=== PATIENT | female | born 1975 | race Two or more races ===

== ENCOUNTER 2019-10-29 12:42 | Emergency (ER) | payer OTHER ==
[~2019-10-29] VITALS: Ht 167.6 cm; Wt 89.4 kg
[2019-10-29 13:18] LABS: BASO # 0.1 x10^3/uL (0.0-0.2); BASO % 1 % (0-3); EOS # 0.2 x10^3/uL (0.0-0.7); EOS % 2 % (0-3); HEMATOCRIT 44.2 % (36.0-47.0); HEMOGLOBIN 15.3 g/dL (12.0-15.5); LYMPH # 2.2 x10^3/uL (1.0-4.8); LYMPH % 24 % (24-48); MEAN CORPUSCULAR HEMOGLOBIN 29 pg (25-35); MEAN CORPUSCULAR HGB CONC 35 g/dL (31-37); MEAN CORPUSCULAR VOLUME 82 fL (79-100); MONO # 0.4 x10^3/uL (0.0-1.1); MONO % 4 % (0-9); NEUT # 6.6 x10^3/uL (1.8-7.7); NEUT % 70 % (31-73); PLATELET COUNT 245 x10^3/uL (140-400); RED BLOOD COUNT 5.39 x10^6/uL (3.50-5.40); RED CELL DISTRIBUTION WIDTH 13.8 % (11.5-14.5); WHITE BLOOD COUNT 9.4 x10^3/uL (4.0-11.0)
[2019-10-29] MEDS: IV NORMAL SALINE 1000ML BAG 1,000 ML IV ONE (13:25)
[2019-10-29] MEDS: TAMSULOSIN 0.4 MG CAP.ER.24H. PO ONE (13:26)
[2019-10-29] MEDS: MORPHINE SULFATE 10 MG/ML VIAL. IV ONE (13:27)
[2019-10-29] MEDS: ONDANSETRON PF 4 MG/2 ML VIAL. IV ONE (13:27)
[2019-10-29 13:31] LABS: CALCIUM 8.6 mg/dL (8.5-10.1); CREATININE 1.1 mg/dL (0.6-1.0); GFR 53.7; POTASSIUM 3.3 mmol/L (3.5-5.1)
[2019-10-29 13:47] LABS: ALBUMIN 4.6 g/dL (3.4-5.0); ALBUMIN/GLOBULIN RATIO 1.3 (1.0-1.7); TOTAL BILIRUBIN 0.7 mg/dL (0.2-1.0); TOTAL PROTEIN 8.1 g/dL (6.4-8.2)
[2019-10-29 14:50] LABS: BILIRUBIN,URINE NEGATIVE (NEG); CLARITY,URINE CLEAR; COLOR,URINE YELLOW; NITRITE,URINE NEGATIVE (NEG); PROTEIN,URINE 30 mg/dL (NEG-TRACE)
[2019-10-29 14:54] LABS: BARBITURATES NEG (NEG); BENZODIAZEPINES NEG (NEG); CANNABINOIDS NEG (NEG); COCAINE NEG (NEG); METHADONE NEG (NEG); OPIATES POS (NEG); PHENCYCLIDINE NEG (NEG)
[2019-10-29 14:58] LABS: AMPHETAMINE/METHAMPHETAMINE NEG (NEG)
[2019-10-29 14:59] LABS: SQUAMOUS EPITHELIAL CELL,UR MOD /LPF
[2019-10-29 15:00] LABS: BACTERIA,URINE 0 /HPF (0-FEW); RBC,URINE TNTC /HPF (0-2); WBC,URINE 0 /HPF (0-4)
--- NOTE | 2019-10-29 15:03 | RAD ---
CT ABDOMEN PELVIS WO CONTRAST Indication: Left flank pain. Exposure: One or more of the following individualized dose reduction techniques were utilized for this examination: 1. Automated exposure control 2. Adjustment of the mA and/or kV according to patient size 3. Use of iterative reconstruction technique. Comparison: Limited images from exam of November 25, 2012. Technique: No intravenous contrast given. No oral contrast per request. Findings: Evaluation of solid viscera, bowel and vasculature is compromised by the noncontrast technique. Lung bases are clear. Liver appears unremarkable. Spleen is mildly enlarged, measuring 13 cm length. This was also seen previously. Pancreas is grossly unremarkable. No evidence of adrenal mass. Nonobstructive calculus identified within the lower pole the left kidney, measures 8 mm. Mild left hydronephrosis and ureteric dilatation to the distal left ureter. Small 6 mm density thought to be within the distal left ureter, compatible with obstructive calculus. Limited images are available from a study 11/25/2012 and this not evident on that exam. Mild fatty stranding around the left ureter and left renal pelvis. Tiny nonobstructive right renal calculi are identified. No evidence of right sided hydronephrosis or ureteric dilatation. Gallbladder surgically absent. Aorta is nonaneurysmal. No significant lymph node enlargement. No significant small bowel distention. Colonic diverticulosis, mild. No evidence of acute colitis. Mild stool identified within the colon. Appendix is visualized, without evidence of acute appendicitis. No significant ascites. No evidence of pneumoperitoneum. The urinary bladder is grossly unremarkable. No evidence of pelvic mass. Vertebral body height and alignment appear intact. IMPRESSION: 1. Findings are most compatible with a 6 mm obstructive calculus in the distal left ureter. Stranding in the fat around the left renal pelvis and ureter could be postobstructive or due to superimposed infection. 2. Additional nonobstructive renal calculi bilaterally. Electronically signed by: Marin Pineda MD (10/29/2019 3:01 PM) [id number]
[2019-10-29] MEDS: HYDROmorphone 2 MG/ML VIAL IV ONE ×2 (15:32→16:30)
--- NOTE | 2019-10-29 15:36 | PHYS DOC ---
Past Medical History Past Medical History: Hypertension, Kidney Stone Past Surgical History: Other Additional Past Surgical Histo: UNKNOWN Alcohol Use: None Drug Use: None Adult General Chief Complaint Chief Complaint: FLANK PAIN HPI HPI Patient is a 44 year old female with history of hypertension, kidney stones, who presents to the ED today complaining of worsening left flank pain, symptoms began 2 weeks ago and she reports they've gotten worse in the last couple days. Patient denies anything specifically exacerbating or relieving her pain Review of Systems Review of Systems Constitutional: Denies fever or chills [] Eyes: Denies change in visual acuity, redness, or eye pain [] HENT: Denies nasal congestion or sore throat [] Respiratory: Denies cough or shortness of breath [] Cardiovascular: No additional information not addressed in HPI [] GI: Denies abdominal pain, nausea, vomiting, bloody stools or diarrhea [] : Reports left flank pain. Denies dysuria or hematuria [] Musculoskeletal: Denies back pain or joint pain [] Integument: Denies rash or skin lesions [] Neurologic: Denies headache, focal weakness or sensory changes [] All other systems were reviewed and found to be within normal limits, except as documented in this note. Current Medications Current Medications Current Medications Medications (Trade) Dose Ordered Sig/Che Start Time Stop Time Status Last Admin Dose Admin Hydromorphone HCl (Dilaudid) 1 mg 1X ONCE 10/29/19 15:30 10/29/19 15:31 DC 10/29/19 15:32 1 MG Morphine Sulfate (Morphine Sulfate) 5 mg 1X ONCE 10/29/19 13:15 10/29/19 13:16 DC 10/29/19 13:27 5 MG Ondansetron HCl (Zofran) 4 mg 1X ONCE 10/29/19 13:15 10/29/19 13:16 DC 10/29/19 13:27 4 MG Sodium Chloride 1,000 ml @ 1,000 mls/hr 1X ONCE 10/29/19 13:15 10/29/19 14:14 DC 10/29/19 13:25 1,000 MLS/HR Tamsulosin HCl (Flomax) 0.4 mg 1X ONCE 10/29/19 13:15 10/29/19 13:16 DC 10/29/19 13:26 0.4 MG Allergies Allergies Allergies Coded Allergies Type Severity Reaction Last Updated Verified Penicillins Allergy Severe Shortness of Air 10/29/19 Yes neomycin Allergy Severe Rash 10/29/19 Yes Physical Exam Physical Exam Constitutional: Well developed, well nourished, no acute distress, non-toxic appearance. [] HENT: Normocephalic, atraumatic, bilateral external ears normal, oropharynx moist, no oral exudates, nose normal. [] Eyes: PERRLA, EOMI, conjunctiva normal, no discharge. [] Neck: Normal range of motion, no tenderness, supple, no stridor. [] Cardiovascular:Heart rate regular rhythm, no murmur [] Lungs & Thorax: Bilateral breath sounds clear to auscultation [] Abdomen: Bowel sounds normal, soft, no tenderness, no masses, no pulsatile masses. [] Skin: Warm, dry, no erythema, no rash. [] Back: No tenderness, mild left CVA tenderness. [] Extremities: No tenderness, no cyanosis, no clubbing, ROM intact, no edema. [] Neurologic: Alert and oriented X 3, normal motor function, normal sensory function, no focal deficits noted. [] Psychologic: Affect normal, judgement normal, mood normal. [] Current Patient Data Vital Signs Vital Signs Date Time Temp Pulse Resp B/P (MAP) Pulse Ox O2 Delivery O2 Flow Rate FiO2 10/29/19 12:52 98.0 78 22 157/91 (113) 99 Room Air 98.0 Lab Values Laboratory Tests Test 10/29/19 13:00 10/29/19 14:10 White Blood Count 9.4 x10^3/uL (4.0-11.0) Red Blood Count 5.39 x10^6/uL (3.50-5.40) Hemoglobin 15.3 g/dL (12.0-15.5) Hematocrit 44.2 % (36.0-47.0) Mean Corpuscular Volume 82 fL (79-100) Mean Corpuscular Hemoglobin 29 pg (25-35) Mean Corpuscular Hemoglobin Concent 35 g/dL (31-37) Red Cell Distribution Width 13.8 % (11.5-14.5) Platelet Count 245 x10^3/uL (140-400) Neutrophils (%) (Auto) 70 % (31-73) Lymphocytes (%) (Auto) 24 % (24-48) Monocytes (%) (Auto) 4 % (0-9) Eosinophils (%) (Auto) 2 % (0-3) Basophils (%) (Auto) 1 % (0-3) Neutrophils # (Auto) 6.6 x10^3/uL (1.8-7.7) Lymphocytes # (Auto) 2.2 x10^3/uL (1.0-4.8) Monocytes # (Auto) 0.4 x10^3/uL (0.0-1.1) Eosinophils # (Auto) 0.2 x10^3/uL (0.0-0.7) Basophils # (Auto) 0.1 x10^3/uL (0.0-0.2) Maternal Serum HCG Beta Subunit < 1 mIU/mL (0-5) Sodium Level 138 mmol/L (136-145) Potassium Level 3.3 mmol/L (3.5-5.1) L Chloride Level 102 mmol/L (98-107) Carbon Dioxide Level 27 mmol/L (21-32) Anion Gap 9 (6-14) Blood Urea Nitrogen 18 mg/dL (7-20) Creatinine 1.1 mg/dL (0.6-1.0) H Estimated GFR (Cockcroft-Gault) 53.7 BUN/Creatinine Ratio 16 (6-20) Glucose Level 109 mg/dL (70-99) H Calcium Level 8.6 mg/dL (8.5-10.1) Total Bilirubin 0.7 mg/dL (0.2-1.0) Aspartate Amino Transferase (AST) 25 U/L (15-37) Alanine Aminotransferase (ALT) 35 U/L (14-59) Alkaline Phosphatase 72 U/L (46-116) Total Protein 8.1 g/dL (6.4-8.2) Albumin 4.6 g/dL (3.4-5.0) Albumin/Globulin Ratio 1.3 (1.0-1.7) Lipase 137 U/L (73-393) Ethyl Alcohol Level < 10 mg/dL (0-10) Urine Collection Type Unknown Urine Color Yellow Urine Clarity Clear Urine pH 6.0 Urine Specific [place] 1.010 Urine Protein 30 mg/dL (NEG-TRACE) Urine Glucose (UA) Negative mg/dL (NEG) Urine Ketones (Stick) Negative mg/dL (NEG) Urine Blood Large (NEG) Urine Nitrite Negative (NEG) Urine Bilirubin Negative (NEG) Urine Urobilinogen Dipstick 1.0 mg/dL (0.2 mg/dL) Urine Leukocyte Esterase Trace (NEG) Urine RBC Tntc /HPF (0-2) Urine WBC 0 /HPF (0-4) Urine Squamous Epithelial Cells Mod /LPF Urine Bacteria 0 /HPF (0-FEW) Urine Opiates Screen Pos (NEG) Urine Methadone Screen Neg (NEG) Urine Barbiturates Neg (NEG) Urine Phencyclidine Screen Neg (NEG) Urine Amphetamine/Methamphetamine Neg (NEG) Urine Benzodiazepines Screen Neg (NEG) Urine Cocaine Screen Neg (NEG) Urine Cannabinoids Screen Neg (NEG) Urine Ethyl Alcohol Neg (NEG) Laboratory Tests 10/29/19 13:00 Laboratory Tests 10/29/19 13:00 EKG EKG [] Radiology/Procedures Radiology/Procedures []PROCEDURE: CT ABDOMEN PELVIS WO CONTRAST CT ABDOMEN PELVIS WO CONTRAST Indication: Left flank pain. Exposure: One or more of the following individualized dose reduction techniques were utilized for this examination: 1. Automated exposure control 2. Adjustment of the mA and/or kV according to patient size 3. Use of iterative reconstruction technique. Comparison: Limited images from exam of November 25, 2012. Technique: No intravenous contrast given. No oral contrast per request. Findings: Evaluation of solid viscera, bowel and vasculature is compromised by the noncontrast technique. Lung bases are clear. Liver appears unremarkable. Spleen is mildly enlarged, measuring 13 cm length. This was also seen previously. Pancreas is grossly unremarkable. No evidence of adrenal mass. Nonobstructive calculus identified within the lower pole the left kidney, measures 8 mm. Mild left hydronephrosis and ureteric dilatation to the distal left ureter. Small 6 mm density thought to be within the distal left ureter, compatible with obstructive calculus. Limited images are available from a study 11/25/2012 and this not evident on that exam. Mild fatty stranding around the left ureter and left renal pelvis. Tiny nonobstructive right renal calculi are identified. No evidence of right sided hydronephrosis or ureteric dilatation. Gallbladder surgically absent. Aorta is nonaneurysmal. No significant lymph node enlargement. No significant small bowel distention. Colonic diverticulosis, mild. No evidence of acute colitis. Mild stool identified within the colon. Appendix is visualized, without evidence of acute appendicitis. No significant ascites. No evidence of pneumoperitoneum. The urinary bladder is grossly unremarkable. No evidence of pelvic mass. Vertebral body height and alignment appear intact. IMPRESSION: 1. Findings are most compatible with a 6 mm obstructive calculus in the distal left ureter. Stranding in the fat around the left renal pelvis and ureter could be postobstructive or due to superimposed infection. 2. Additional nonobstructive renal calculi bilaterally. Electronically signed by: Marin Pineda MD (10/29/2019 3:01 PM) [id number] DICTATED and SIGNED BY: MARIN PINEDA MD DATE: 10/29/19 1501 Course & Med Decision Making Course & Med Decision Making Pertinent Labs and Imaging studies reviewed. (See chart for details) This is a 44-year-old female patient with history of kidney stones presenting to the ED today complaining of left flank pain, symptoms began 2 weeks ago and have gotten worse today. Negative beta hCG, urine analysis is noted for large amount of blood, negative nitrites, trace amount of leukocytes. CBC, CMP-nothing really acute. CT of the abdomen and pelvic is noted for-6 mm obstructive calculus in the distal left ureter. Stranding in the fat around the left renal pelvis and ureter could be postobstructive or due to superimposed infection.Additional nonobstructive renal calculi bilaterally. Patient reports the last time she had a kidney stone stone they had to surgically remove it. [facility] does not have a urologist. Patient will be transferred to (her choice of hospital). Spoke with urologist-she requested we discharge patient to home, they will contact the patient tonight and set her up for an outpatient surgical procedure to remove the kidney stone. Patient is stable to go home. Dragon Disclaimer Dragon Disclaimer This electronic medical record was generated, in whole or in part, using a voice recognition dictation system. Departure Departure Impression: Primary Impression: Calculus of distal left ureter Additional Impression: Hydronephrosis, left Disposition: HOME, SELF-CARE Condition: STABLE Referrals: [facility] (PCP) urology group will call you today and schedule you for outpatient procedure to remove the stone in tomorrow Patient Instructions: Kidney Stones, [id number] Additional Instructions: You were evaluated in the emergency room and noted to have a kidney stone. urology will call you tomorrow today and schedule you for an outpatient procedu re to remove the stone tomorrow. Please take the prescribed pain medicine as needed for pain. Come back to the ED at any point symptoms worsen. Scripts Ondansetron (ONDANSETRON ODT) 4 Mg Tab.rapdis 1 TAB PO PRN Q6-8HRS, #16 TAB Prov: LANIE SUE APRN 10/29/19 Hydrocodone/Acetaminophen (Hydrocodone-Acetamin 7.5-325) 1 Each Tablet 1 EACH PO Q4HRS PRN for PAIN, #14 TAB Prov: LANIE SUE APRN 10/29/19 Tamsulosin Hcl (FLOMAX) 0.4 Mg Cap.er.24h 1 CAP PO DAILY, #7 CAP Prov: LANIE SUE APRN 10/29/19 Problem Qualifiers LANIE SUE APRN Oct 29, 2019 15:36
[2019-10-29] MEDS ORDERED: HYDR-2763 PO (16:23)
[2019-10-29] MEDS ORDERED: TAMS0.4C97 PO (16:23)
[2019-10-29] MEDS ORDERED: ONDA4TAB12 PO (16:23)
[2019-10-29] MEDS: KETOROLAC 30 MG/ML VIAL. IVP ONE (16:29)
[2019-10-29 16:30] VITALS: BP 126/78
== END 2019-10-29 17:27 | disposition home or self-care (01) ==
LOC: ER 12:42
DX: N13.2 Hydronephrosis with renal and ureteral calculous obstruction (principal); I10 Essential (primary) hypertension; Z88.0 Allergy status to penicillin; Z88.1 Allergy status to other antibiotic agents
CPT/HCPCS: 36415; 74176; 80053; 80307; 81001; 83690; 84702; 85025; 87086; 96374; 96375; 96376; 99285; G0480; J1170; J1885; J2270; J2405; J7030